=== PATIENT | female | born 1955 | race Caucasian/White ===

== ENCOUNTER 2024-03-26 10:46 | Emergency (ER) | payer OTHER, SELFPAY ==
[2024-03-26 11:02] VITALS: BP 116/74; PULSE 69; RESP 18; TEMP 36.7; O2SAT 97; BMI 27.4
--- NOTE | 2024-03-26 11:23 | DI.RAD.S_ITS ---
PROCEDURE: XR FOOT RT MIN 3V INDICATIONS: trauma TECHNIQUE: 3 views of the foot were acquired. COMPARISON: None. FINDINGS: Bones: No fractures or dislocations. No suspicious bony lesions. Soft tissues: No tibiotalar joint effusion. Achilles tendon appears normal. IMPRESSION: No acute bony abnormality. Dictated by: Manfred Davis M.D. on 03/26/2024 at 12:10 Approved by: Manfred Davis M.D. on 03/26/2024 at 12:11
--- NOTE | 2024-03-26 11:41 | ED_ITS ---
HPI - Extremity Injury (Lower) <Barb Wiley PA-C - Last Filed: 03/26/24 12:32> General Chief Complaint: Extremity Injury, Lower Stated Complaint: R foot injury Time Seen by Provider: 03/26/24 11:21 Source: patient Mode of arrival: Wheelchair History of Present Illness HPI Narrative: 68-year-old female presents this morning for right dorsal foot pain. She was cooking in her kitchen last night, barefoot, when she dropped her large I phone striking the dorsal aspect. She reported no treatment, no real issues last night but when she woke this morning she had significant pain with weightbear. She is denying any numbness, tingling, loss of sensation, no changes in temperature to the foot. Absolutely no treatment tried such as ice or any medication. She states ?I am organic?. She lives on [facility], her regular health care is through [facility]. No prior injuries to this what that she is aware of. All other systems are reviewed and are negative. Related Data Previous Rx's Medication Instructions Recorded voltaren 10% gel See Rx Instructions .Route 07/10/19 .COMPLEX knee pain #30 grams Allergies Allergy/AdvReac Type Severity Reaction Status Date / Time No Known Drug Allergies Allergy Verified 03/26/24 11:02 Review of Systems <Barb Wiley PA-C - Last Filed: 03/26/24 12:32> Review of Systems Narrative: All other systems reviewed and are negative. Patient History <Barb Wiley PA-C - Last Filed: 03/26/24 12:32> Medical History Allergies Mumps (~1963) Measles (~1965) Chicken pox (~1963) History of eczema History of scoliosis (~1968) Surgical History Anesthesia History of ankle surgery (~2004) Family History Father Cancer Mother Bone cancer Breast cancer Smoker Social History Smoking Status: Never smoker Smoking Status: Never smoker Exam <Barb Wiley PA-C - Last Filed: 03/26/24 12:32> Initial Vital Signs Initial Vital Signs: Vital Signs Temperature 98.0 F 03/26/24 11:02 Pulse Rate 69 03/26/24 11:02 Respiratory Rate 18 03/26/24 11:02 Blood Pressure 116/74 03/26/24 11:02 Pulse Oximetry 97 03/26/24 11:02 Oxygen Delivery Method Room Air 03/26/24 11:02 Vital signs reviewed and are normal. Const Other: Seated, smiling, reading books, no distress. Resp Effort & Inspection: normal respiratory effort and able to speak in complete sentences Cardio Rate: regular rate Rhythm: regular rhythm Skin Other: Mild discoloration (green/purple) and swelling to the dorsolateral aspect of her right foot overlying the 4th distal metatarsal just proximal to the MTP joint line. Neuro Other: No focal neuro deficits involving the foot or toes on the right side. Extrem Other: Right foot, skin is intact, mild dorsal foot swelling overlying the 4th distal metatarsal. She is able to move her distal phalanges against resistance, flexion and extension are intact. Normal color, temperature, turgor, DP and PT pulses are present. No issues identified with the ankle, or nail plates. Focal tenderness overlying the contusion as noted. <Blue Osborn MD - Last Filed: 04/08/24 15:23> Initial Vital Signs Initial Vital Signs: Vital Signs Temperature 98.0 F 03/26/24 11:02 Pulse Rate 69 03/26/24 11:02 Respiratory Rate 18 03/26/24 11:02 Blood Pressure 116/74 03/26/24 11:02 Pulse Oximetry 97 03/26/24 11:02 Oxygen Delivery Method Room Air 03/26/24 11:02 Course <Barb Wiley PA-C - Last Filed: 03/26/24 12:32> Orders Ordered: ED Orders 03/26/24 11:23 XR foot RT min 3V Stat Vital Signs Vital signs: Vital Signs - 8 hr 03/26/24 11:02 Temperature 98.0 F Pulse Rate 69 Respiratory Rate 18 Blood Pressure 116/74 Pulse Oximetry 97 Oxygen Delivery Method Room Air <Blue Osborn MD - Last Filed: 04/08/24 15:23> Orders Ordered: ED Orders 03/26/24 11:23 XR foot RT min 3V Stat Vital Signs Vital signs: Vital Signs - 8 hr 03/26/24 11:02 Temperature 98.0 F Pulse Rate 69 Respiratory Rate 18 Blood Pressure 116/74 Pulse Oximetry 97 Oxygen Delivery Method Room Air MDM - Extremity Injury (Lower) <Barb Wiley PA-C - Last Filed: 03/26/24 12:32> Imaging Data Extremity x-ray #1: My Impression: No acute bony abnormality Radiologist's Impression: PROCEDURE: XR FOOT RT MIN 3V INDICATIONS: trauma TECHNIQUE: 3 views of the foot were acquired. COMPARISON: None. FINDINGS: Bones: No fractures or dislocations. No suspicious bony lesions. Soft tissues: No tibiotalar joint effusion. Achilles tendon appears normal. IMPRESSION: No acute bony abnormality. Dictated by: Manfred Davis M.D. on 03/26/2024 at 12:10 Approved by: Manfred Davis M.D. on 03/26/2024 at 12:11 [facility] Narrative Medical decision making narrative: No breaks in the skin, dorsal foot contusion, x-rays are negative. Discussed avoiding stiffness and remaining active, avoiding re-injury so wear protective shoes or footwear at all times. Might try some cold soaks or warm soaks. Discussed the use of contrast bath, or an actual ice pack intermittently avoid tissue injury and use a washcloth. Seek medical attention if anything worsens. Discharge Plan Departure Patient Disposition: Home Clinical Impression: Contusion of foot, right Qualifiers: Encounter type: initial encounter Qualified Code(s): S90.31XA - Contusion of right foot, initial encounter Instructions: DI for Contusion Activity Restrictions/Additional Instructions: This is a generalized handout for contusions, they are quite painful, elevation is helpful to minimize any additional swelling, remain active to avoid any stiffness, avoid re-injury and wear protective footwear at all times, I recommend using a bowl of water with some ice cubes to do a cold plunge for about 30-40 seconds he will have immediate numbness and relief as you wanted to avoid taking medications and remain organic. You may also do warm soaks, you ca n apply frozen vegetables or an ice pack just use a washcloth to prevent any freezer burn of the tissues. Please seek medical attention if anything worsens or you have increased swelling, pain any numbness or tingling or any other concerns. He can always follow up with your regular doctor as well. Prescriptions: No Action voltaren 10% gel See Rx Instructions .ROUTE .COMPLEX Qty: 30 2RF Dose Instruction: apply small amount to affected area twice daily as needed for pain ; ; Rx Instructions: apply small amount to affected area twice daily as needed for pain ; ; Stand Alone Forms: Patient Portal/API ED Sign-out <Blue Osborn MD - Last Filed: 04/08/24 15:23> Cosign ED Attending Cosignature Attestation: I was immediately available in the department for consultation. ?This documentation has been reviewed and I agree with assessment and plan. Supervised by Blue Osborn MD
[2024-03-26 12:47] VITALS: BP 113/61; PULSE 63; RESP 18; O2SAT 99
== END 2024-03-26 12:49 | disposition home or self-care (01) ==
PROVIDERS: Emergency Provider Physician Assistant Medical
DX: S90.31XA Contusion of right foot, initial encounter (principal); W20.8XXA Other cause of strike by thrown, projected or falling object, initial encounter
CPT/HCPCS: 73630; 99282; 99283